=== PATIENT | female | born 1990 | race Caucasian/White ===

== ENCOUNTER 2017-02-25 07:41 | Outpatient (CLI) | payer OTHER | END 2017-02-25 17:22 | disposition home or self-care (01) | LOC: SUS 07:41 | PROVIDERS: ATTEND Family Medicine | DX: N83.209 Unspecified ovarian cyst, unspecified side (principal) | CPT/HCPCS: 76700-TC; 76830-TC; 76857 ==

== ENCOUNTER 2017-10-11 11:43 | Emergency (ER) | payer OTHER ==
[~2017-10-11] VITALS: Ht 157.5 cm; Wt 78.9 kg
[2017-10-11 11:48] VITALS: BP_SYST 157
[2017-10-11 12:21] LABS: BASOPHILS # (AUTO) 0.1 K/uL (0.0-0.2); BASOPHILS % (AUTO) 0.7 % (0.0-2.0); EOSINOPHILS # (AUTO) 0.1 K/uL (0.0-0.4); EOSINOPHILS % (AUTO) 1.7 % (0.0-4.0); HEMATOCRIT 41.4 % (36-48); HEMOGLOBIN 13.6 g/dL (12.0-16.0); LYMPHOCYTES # (AUTO) 2.1 K/uL (1.0-5.5); LYMPHOCYTES % (AUTO) 24.3 % (20.5-51.5); MEAN CORPUSCULAR HEMOGLOBIN 28 pg (27-31); MEAN CORPUSCULAR HGB CONC 33 % (32-36); MEAN CORPUSCULAR VOLUME 87 fL (79.0-98.0); MONOCYTES # (AUTO) 0.5 K/uL (0.0-1.0); MONOCYTES % (AUTO) 6.2 % (1.7-9.3); NEUTROPHILS # (AUTO) 5.8 K/uL (1.8-7.7); NEUTROPHILS % (AUTO) 67.1 % (40.0-70.0); PLATELET COUNT (AUTO) 298 K/uL (130-430); RED BLOOD CELL COUNT(AUTO) 4.79 MIL/uL (4.2-6.2); RED CELL DISTRIBUTION WIDTH 13.1 % (9.0-15.0); WHITE BLOOD COUNT (AUTO) 8.6 K/uL (4.8-10.8)
[2017-10-11 12:43] LABS: PROTHROMBIN TIME 9.7 SECS (9.5-12.5)
[2017-10-11 12:52] LABS: CALCIUM 9.2 mg/dL (8.4-11.0); CREATININE 0.61 mg/dL (0.55-1.30); POTASSIUM 3.5 mmol/L (3.5-5.1)
[2017-10-11 12:57] LABS: TOTAL BILIRUBIN 0.3 mg/dL (0.0-1.0)
[2017-10-11 13:25] VITALS: BP_SYST 129
== END 2017-10-11 13:25 | disposition home or self-care (01) ==
LOC: SED 11:43
DX: J98.01 Acute bronchospasm (principal); R42 Dizziness and giddiness; M25.512 Pain in left shoulder; R03.0 Elevated blood-pressure reading, without diagnosis of hypertension
CPT/HCPCS: 36415; 71045; 80053; 81025; 82550-TC; 84484; 84703; 85025; 85379; 85610-TC; 85730-TC; 93005; 99285

== ENCOUNTER 2018-08-07 16:14 | Emergency (ER) | payer OTHER ==
[~2018-08-07] VITALS: Ht 160 cm; Wt 79.4 kg
[2018-08-07 16:36] VITALS: BP_SYST 157
[2018-08-07 18:02] LABS: BASOPHILS # (AUTO) 0.1 K/uL (0.0-0.2); BASOPHILS % (AUTO) 0.8 % (0.0-2.0); EOSINOPHILS # (AUTO) 0.1 K/uL (0.0-0.4); EOSINOPHILS % (AUTO) 1.9 % (0.0-4.0); HEMATOCRIT 40.8 % (36-48); HEMOGLOBIN 13.5 g/dL (12.0-16.0); LYMPHOCYTES # (AUTO) 1.7 K/uL (1.0-5.5); LYMPHOCYTES % (AUTO) 23.4 % (20.5-51.5); MEAN CORPUSCULAR HEMOGLOBIN 29 pg (27-31); MEAN CORPUSCULAR HGB CONC 33 % (32-36); MEAN CORPUSCULAR VOLUME 87 fL (79.0-98.0); MONOCYTES # (AUTO) 0.6 K/uL (0.0-1.0); MONOCYTES % (AUTO) 7.8 % (1.7-9.3); NEUTROPHILS # (AUTO) 4.9 K/uL (1.8-7.7); NEUTROPHILS % (AUTO) 66.1 % (40.0-70.0); PLATELET COUNT (AUTO) 328 K/uL (130-430); RED CELL DISTRIBUTION WIDTH 13.8 % (9.0-15.0); WHITE BLOOD COUNT (AUTO) 7.4 K/uL (4.8-10.8)
[2018-08-07 18:16] LABS: CALCIUM 9.1 mg/dL (8.4-11.0); CREATININE 0.66 mg/dL (0.55-1.30); POTASSIUM 3.9 mmol/L (3.5-5.1)
--- NOTE | 2018-08-07 18:16 | NUR ---
Patient to ER bed 7 to gown for evaluation. Side rails up. Report given to Mami EUBANKS.
[2018-08-07 18:22] LABS: TOTAL BILIRUBIN 0.3 mg/dL (0.0-1.0)
--- NOTE | 2018-08-07 18:23 | NUR ---
ER Dr. CÁRDENAS at bedside examining patient.
--- NOTE | 2018-08-07 18:25 | NUR ---
PATIENT COMPLAINING OF FREQUENT URINATION AND BURNING. PATIENT ALSO COMPLAINING OF DISCOMFORT IN VAGINA FOR 2 DAYS. PATIENT ALSO HAS SOME YELLOW DISCHARGE IN VAGINA. PATIENT STATES SHE GETS LOTS OF BACTERIAL INFECTIONS. PATIENT SEXUALY ACTIVE WITH BF OF 6 YEARS. PATIENT ALERT AND ORIENTED X4. PATIENT NOT COMPLAINING OF SOB, [place] OR VOMITING.
--- NOTE | 2018-08-07 18:45 | NUR ---
Pelvic exam performed by DR CÁRDENAS with ME at bedside for entire examination. Patient tolerated procedure WELL. Patient assisted to position of comfort after examination.
[2018-08-07 19:03] LABS: BILIRUBIN,URINE NEGATIVE (NEGATIVE); BLOOD, URINE NEGATIVE (NEGATIVE); CLARITY/URINE CLEAR (CLEAR); COLOR,URINE YELLOW (YELLOW); GLUCOSE,URINE NEGATIVE (NEGATIVE); KETONES,URINE NEGATIVE (NEGATIVE); LEUKOCYTE ESTERASE ,URINE NEGATIVE (NEGATIVE); NITRITE, URINE NEGATIVE (NEGATIVE); PROTEIN URINE NEGATIVE (NEGATIVE); UROBILINOGEN,URINE 0.2 (0.2-1.0)
--- NOTE | 2018-08-07 19:07 | NUR ---
Patient given written and verbal discharge instructions and verbalizes understanding. ER MD discussed with patient the results and treatment provided. Patient in stable condition. ID arm band removed. IV catheter removed intact and dressing applied, no active bleeding. Rx of PYRIDIUM, DOXYCYCLINE, FLAGYL, KEFLEX, DIFLUCAN given. Patient educated on pain management and to follow up with PMD. Pain Scale 0/10. Opportunity for questions provided and answered. Medication side effect fact sheet provided.
[2018-08-07 19:17] VITALS: BP_SYST 127
[2018-08-10 00:09] LABS: CHLAMYDIA TRACHOMATIS NAA Negative (Negative); NEISSERIA GONORRHOEAE NAA Negative (Negative)
== END 2018-08-07 19:17 | disposition home or self-care (01) ==
LOC: SED 16:14
DX: N76.0 Acute vaginitis (principal); B96.89 Other specified bacterial agents as the cause of diseases classified elsewhere; N39.0 Urinary tract infection, site not specified; L73.9 Follicular disorder, unspecified; A64 Unspecified sexually transmitted disease; J45.909 Unspecified asthma, uncomplicated
CPT/HCPCS: 36415; 80053; 81003; 81025; 85025; 87210-TC; 87491; 87591; 99283

== ENCOUNTER 2018-11-06 09:39 | Day surgery (SDC) | payer OTHER ==
[~2018-11-06] VITALS: Ht 157.5 cm; Wt 79.8 kg
[2018-11-06] MEDS ORDERED: SIMETHICONE 40 MG/0.6 ML ML ONE (09:54)
[2018-11-06 09:59] LABS: HCG,QUAL RESULT NEGATIVE (NEGATIVE)
[2018-11-06] MEDS: fentaNYL CITRATE/PF 100 MCG/2 ML AMP ONE ×3 (11:30→11:35)
[2018-11-06] MEDS: MIDAZOLAM HCL 5 MG/5 ML VIAL ONE ×4 (11:30→11:38)
[2018-11-06 15:15] VITALS: BP_SYST 126
== END 2018-11-06 12:45 | disposition home or self-care (01) ==
LOC: SDS 09:39 → SMU 09:47 → SDS 12:45
PROVIDERS: ATTEND Internal Medicine
DX: K29.50 Unspecified chronic gastritis without bleeding (principal); K44.9 Diaphragmatic hernia without obstruction or gangrene; K21.9 Gastro-esophageal reflux disease without esophagitis; I10 Essential (primary) hypertension; J45.909 Unspecified asthma, uncomplicated
CPT/HCPCS: 36415; 43239; 84703; 87081; 88305; 88312; 88313; J2250; J3010